=== PATIENT | female | born 1970 | race American Indian/Alaskan Native ===

== ENCOUNTER 2018-01-03 16:08 | Emergency (ER) | payer MEDICARE ==
--- NOTE | 2018-01-03 20:10 | XRay Report ---
FINAL REPORT EXAM: XR HAND 2V LT HISTORY: pain and swelling s/p laceration TECHNIQUE: Frontal and lateral views of left hand. PRIORS: None. FINDINGS: No apparent fracture or dislocation. Joint spaces maintained. Soft tissue edema noted about the thumb. Small defect and possible laceration along the dorsal aspect of thumb distal phalanx, with ill-defined soft tissue density may represent bandaging artifact versus debris or retained foreign body. IMPRESSION: 1. No acute osseous abnormality. 2. Soft tissue posttraumatic change noted about the left thumb.
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
[2018-01-03] MEDS ORDERED: MOTRIN PO ONE (21:01)
[2018-01-03 21:06] LABS: Basophils # (Auto) 0.1 K/mm3 (0.0-0.1); Basophils % (Auto) 1.4 % (0.0-1.8); Eosinophils # (Auto) 0.1 K/mm3 (0.0-0.4); Eosinophils % (Auto) 1.1 % (0.0-4.3); Hemoglobin 10.7 gm/dl (10.1-14.3); Lymphocytes # (Auto) 3.8 K/mm3 (1.2-5.4); Lymphocytes % (Auto) 43.2 % (13.4-35.0); Mean Corpuscular HGB Conc 32 % (30-34); Mean Corpuscular Hemoglobin 25 pg (28-32); Mean Corpuscular Volume 78 fl (79-97); Monocytes # (Auto) 0.7 K/mm3 (0.0-0.8); Monocytes % (Auto) 7.8 % (0.0-7.3); Platelet Count 286 K/mm3 (140-440); Red Blood Count 4.34 M/mm3 (3.65-5.03); Red Cell Distribution Width 18.6 % (13.2-15.2)
[2018-01-03 21:16] VITALS: BP 142/80
[2018-01-03 21:19] LABS: Alanine Aminotransferase 16 units/L (7-56); Albumin 3.9 g/dL (3.9-5); BUN/Creatinine Ratio 14; Blood Urea Nitrogen 11 mg/dL (7-17); Calcium 8.9 mg/dL (8.4-10.2); Hemolysis Index 4
[2018-01-03] MEDS ORDERED: KEFLEX PO ONE (22:15)
[2018-01-03] MEDS ORDERED: BACTRIM DS PO ONE (22:15)
== END 2018-01-03 22:34 | disposition home or self-care (01) ==
LOC: ED 16:08
DX: L03.012 Cellulitis of left finger (principal); I11.0 Hypertensive heart disease with heart failure; I50.9 Heart failure, unspecified; E11.9 Type 2 diabetes mellitus without complications; F17.200 Nicotine dependence, unspecified, uncomplicated; Z90.49 Acquired absence of other specified parts of digestive tract; Z86.73 Personal history of transient ischemic attack (TIA), and cerebral infarction without residual deficits; Z79.84 Long term (current) use of oral hypoglycemic drugs
CPT/HCPCS: 36415; 80053; 85025; 99284